=== PATIENT | female | born 1960 | race African-American/Black ===

== ENCOUNTER → 2021-07-10 | Outpatient (CLI) | payer MEDICARE, MEDICAID | END | disposition home or self-care (01) | LOC: Rad HDHVI 12:33 | PROVIDERS: ATTEND Internal Medicine Cardiovascular Disease | DX: R07.89 Other chest pain (principal) | CPT/HCPCS: 93306 ==

== ENCOUNTER → 2022-05-03 | Outpatient (CLI) | payer MEDICARE, MEDICAID ==
[~2022-05-03] MED LIST: AMLO-489 PO; ASPI-543 PO; CARV3.1240 PO; CARV6.2551 PO; DAPA1TAB4 PO; FOLI1TAB6 PO; HYDR25TA5 PO; NITR0.4S29 SL; PRED10TA PO; SIMV-13 PO; SPIR25TA8 PO; TRAM50TA2 PO
[2022-05-03 09:41] VITALS: BP 169/75
[2022-05-03 10:00] VITALS: BP 163/75
[2022-05-03 11:33] LABS: Basophils # (auto) 0 10 ^3/uL (0-0.2); Eosinophils # (auto) 0.1 10 ^3/uL (0-0.8); Monocytes # (auto) 0.5 10 ^3/uL (0-1.3); Nucleated Red Blood Cells % 0.1 %
[2022-05-03 11:35] LABS: Basophils % (auto) 0.4 % (0.0-2.0); Eosinophils % (auto) 2.7 % (0.0-7.0); Hemoglobin 10.5 g/dL (12.2-16.2); Lymphocytes # (auto) 1.1 10 ^3/uL (0.4-5.4); Lymphocytes % (auto) 30.2 % (10.0-50.0); Mean Corpuscular Hgb Conc. 31.7 g/dL (32.0-36.0); Mean Corpuscular Volume 72.5 fL (80.0-100.0); Monocytes % (auto) 13.1 % (0.0-12.0); Neutrophils % (auto) 53.6 % (37.0-80.0); Red Blood Cells 4.56 10^6/uL (4.0-5.20); Red Cell Distribution Width 19.7 % (11.8-14.3); White Blood Cell 3.7 10^3/uL (4.4-10.8)
[2022-05-03 11:51] LABS: Potassium 3.8 mmol/L (3.5-5.1)
[2022-05-03 11:52] LABS: BUN/Creatinine Ratio 17.7; Calcium 8.7 mg/dL (8.5-10.1)
[2022-05-03 12:00] LABS: Partial Thromboplastin Time 27.6 sec (24.6-33.4)
== END | disposition home or self-care (01) ==
LOC: Rad HDHVI 09:21
PROVIDERS: ATTEND Internal Medicine Cardiovascular Disease
DX: Z01.818 Encounter for other preprocedural examination (principal); R94.31 Abnormal electrocardiogram [ECG] [EKG]; R06.02 Shortness of breath; I50.9 Heart failure, unspecified; J98.4 Other disorders of lung; M47.814 Spondylosis without myelopathy or radiculopathy, thoracic region; Q25.46 Tortuous aortic arch
CPT/HCPCS: 36415; 71046; 80048; 85025; 85610; 85730; 93005; G0463

== ENCOUNTER 2022-05-06 07:12 | Day surgery (SDC) | payer MEDICARE, MEDICAID ==
[~2022-05-06] VITALS: Ht 170.2 cm; Wt 63.5 kg
[~2022-05-06 07:12] MED LIST changes: -CARV6.2551 PO
[2022-05-06] MEDS ORDERED: cloNIDine HCL 0.1 MG TAB PO ONE (09:15)
[2022-05-06] MEDS ORDERED: LIDOCAINE 2%HCL (LOCAL ANESTH.) INJ 20ML MDV ONE ×2 (10:28→10:44)
[2022-05-06] MEDS ORDERED: IOHEXOL 350 MG/ML 100ML IJ ONE (10:28)
[2022-05-06] MEDS ORDERED: ANGIOMAX 250 MG VIAL IV ONE (10:34)
[2022-05-06] MEDS ORDERED: fentaNYL CITRATE 100 MCG/2 ML VL ONE (10:34)
[2022-05-06] MEDS ORDERED: MIDAZOLAM HCL 2MG/2ML 2ml VIAL (1mg/ml) ONE (10:35)
[2022-05-06] MEDS ORDERED: SODIUM CHL 0.9% 0 ML ONE (10:35)
[2022-05-06] MEDS ORDERED: ONDANSETRON HCL 4 MG/2 ML VIAL ONE (10:54)
[2022-05-06] MEDS ORDERED: hydrALAZINE HCL 20 MG/ML VL ONE (10:56)
[2022-05-06] MEDS ORDERED: traMADol HCL 50 MG TAB PO ONE (12:30)
== END 2022-05-06 14:14 | disposition home or self-care (01) ==
LOC: CATH 07:12
PROVIDERS: ATTEND Internal Medicine Cardiovascular Disease
DX: R94.39 Abnormal result of other cardiovascular function study (principal); I25.10 Atherosclerotic heart disease of native coronary artery without angina pectoris; I11.0 Hypertensive heart disease with heart failure; I50.9 Heart failure, unspecified; E78.5 Hyperlipidemia, unspecified; I25.2 Old myocardial infarction; Z86.74 Personal history of sudden cardiac arrest; Z87.891 Personal history of nicotine dependence; Z82.49 Family history of ischemic heart disease and other diseases of the circulatory system; Z95.5 Presence of coronary angioplasty implant and graft; Z20.822 Contact with and (suspected) exposure to COVID-19
CPT/HCPCS: 93456; C1751; C1760; C1769; C1894; J0360; J1644; J2250; J2405; J3010; Q9967; U0003; 99152; 99153

== ENCOUNTER → 2023-02-16 | Outpatient (CLI) | payer MEDICARE, MEDICAID ==
[~2023-02-16] MED LIST changes: +IOHEXOL 350 MG/ML 100ML IJ ONE
[2023-02-16 10:15] VITALS: BP 137/77
[2023-02-16 10:29] VITALS: BP 142/67
== END | disposition home or self-care (01) ==
LOC: Rad HDHVI 10:00
PROVIDERS: ATTEND Internal Medicine Cardiovascular Disease
DX: R31.9 Hematuria, unspecified (principal)
CPT/HCPCS: 74177; G0463; Q9967